=== PATIENT | male | born 1990 | race Caucasian/White ===

== ENCOUNTER 2016-09-30 23:57 | Emergency (ER) | payer OTHER ==
[~2016-09-30] VITALS: Ht 165.1 cm; Wt 66.5 kg
[~2016-09-30 23:57] MED LIST: ALBUTEROL SULF8.5 GM IH; AMOXICILLIN500 MG PO; BENADRYL ALLERG25 MG PO; BENADRYL50 MG PO; CIPRO500 MG PO; FIORICET 50-301 EACH PO; FLEXERIL10 MG PO; FLUOXETINE HCL20 MG PO; HYDROCODON-ACE1 EAC7 PO; MOTRIN800 MG PO; NAPROSYN500 MG PO; NAPROXEN500 MG PO; NICOTINE PATCH1 EAC2 TD; NOHOMEMEDS; PEN-VEE K,VEET500 MG PO; PERCOCET 5/31 TABLET PO; PREDNISONE10 MG PO; PROZAC20 MG PO; Remove Nicotine Patch TD; TAMIFLU75 MG PO; VALIUM5 MG PO; VENTOLIN HFA18 GM IH; VICODIN PO; VITAMIN D-32000 UNI2 PO; XYLOCAINE VISC100 ML MM; ZOFRAN ODT4 MG PO
[2016-10-01] MEDS ORDERED: ERYTHROMYC1 APPLICAT LEFT EYE (02:24)
[2016-10-01] MEDS ORDERED: TOBREX5 ML LEFT EYE (02:24)
[2016-10-01] MEDS ORDERED: PERCOCET 5/31 TABLET PO (02:24)
[2016-10-01 02:31] VITALS: BP 122/78
== END 2016-10-01 02:32 | disposition home or self-care (01) ==
LOC: RME 23:57 → EME 23:57 → RME 10-01 02:32
PROC: 08C9XZZ Extirpation of Matter from Left Cornea, External Approach (ICD-10-PCS; principal; 2016-10-01)
DX: T15.02XA Foreign body in cornea, left eye, initial encounter (principal); W22.8XXA Striking against or struck by other objects, initial encounter; Z88.1 Allergy status to other antibiotic agents
CPT/HCPCS: 99281; 99284

== ENCOUNTER 2018-04-18 17:09 | Emergency (ER) | payer OTHER ==
[~2018-04-18] VITALS: Ht 165.1 cm; Wt 63.7 kg
[~2018-04-18 17:09] MED LIST changes: +ERYTHROMYC1 APPLICAT LEFT EYE; +TOBREX5 ML LEFT EYE
[2018-04-18 18:35] LABS: HEMATOCRIT 40.2 % (38.0-50.0); HEMOGLOBIN 14.4 G/DL (12.5-16.6); MCH 31.4 PG (29.0-34.0); MCHC 35.8 G/DL (30.0-36.0); MCV 87.8 FL (86-99); PLATELET COUNT 235 K/uL (156-360); RBC DIS.WIDTH-CV 12.7 % (11.8-14.6); RBC DIS.WIDTH-SD 40.8 % (39-53); RED BLOOD COUNT 4.58 M/uL (4.00-5.50); WHITE BLOOD COUNT 11.2 K/uL (4.1-10.2)
[2018-04-18 18:51] LABS: CHLORIDE 103 mEq/L (99-109); POTASSIUM 4.3 mEq/L (3.7-5.4); SODIUM 140 mEq/L (136-147)
[2018-04-18 18:52] LABS: GLUCOSE 100 mg/dL (70-99)
[2018-04-18 18:55] LABS: TROP-I INTERPRETATION NEGATIVE; TROPONIN-I < 0.01 ng/mL (0.0-0.30)
[2018-04-18 18:56] LABS: CREATININE 1.2 mg/dL (0.6-1.3); GFR ESTIMATE (CALCULATED) > 59 mL/min/ (58.99-99999)
[2018-04-18 20:13] VITALS: BP 138/83
[2018-04-18 20:43] LABS: UREA NITROGEN (BUN) 20 mg/dL (9-23)
== END 2018-04-18 20:25 | disposition home or self-care (01) ==
LOC: EME 17:09
PROVIDERS: Emergency Medicine
DX: R07.89 Other chest pain (principal); J45.909 Unspecified asthma, uncomplicated; F31.9 Bipolar disorder, unspecified; F17.200 Nicotine dependence, unspecified, uncomplicated; Z82.49 Family history of ischemic heart disease and other diseases of the circulatory system; Z88.1 Allergy status to other antibiotic agents; Z88.8 Allergy status to other drugs, medicaments and biological substances
CPT/HCPCS: 71046; 80048; 84484; 85027; 93005; 94640; 99281; 99284; J7512